=== PATIENT | female | born 2005 | race Asian ===

== ENCOUNTER 2024-01-15 10:51 | Outpatient (CLI) | payer BC, SELFPAY ==
[2024-01-15 13:58] LABS: Chlamydia DNA Amplified* NOT DETECTED (No Detected); GC DNA Amplified* NOT DETECTED (No Detected)
== END 2024-01-15 10:52 | disposition home or self-care (01) ==
PROVIDERS: Visit Provider Registered Nurse
DX: N93.9 Abnormal uterine and vaginal bleeding, unspecified (principal); Z11.3 Encounter for screening for infections with a predominantly sexual mode of transmission
CPT/HCPCS: 84702; 87491; 87591

== ENCOUNTER 2025-03-25 10:19 | Outpatient (CLI) | payer BC, SELFPAY | END 2025-03-25 10:20 | disposition home or self-care (01) | LOC: NFLDREF 03-31 18:31 | DX: N30.01 Acute cystitis with hematuria (principal) | CPT/HCPCS: 87086 ==